=== PATIENT | male | born 1965 | race Two or more races ===

== ENCOUNTER → 2024-07-18 | Outpatient (CLI) | payer MEDICARE, MEDICAID, SELFPAY ==
--- NOTE | 2024-07-18 08:00 | XR_ITS ---
EXAMINATION: PET/CT FUSION SKULL TO THIGH EXAM DATE AND TIME: July 18, 2024 0923 hours COMPARISON: CT abdomen pelvis July 03, 2022, CTA chest July 03, 2022 INDICATIONS: Diagnosis malignant neoplasm prostate, restaging post treatment CTDI:vol (mGy) 3.98 DLP: (mGycm) 363.41 PROCEDURE: 14.8 mCi FDG was administered intravenously To allow for distribution and uptake of radiotracer, the patient was allowed to rest quietly in a shielded room. Imaging was performed on an integrated 16-slice PET/CT scanner, with scanning from the skull base to the mid thigh. Serum blood glucose at the time of the injection was measured 74 mg/dL. CT scanning was performed without oral or intravenous contrast material. FINDINGS: Head and Neck: There is no petra hypermetabolism in the neck. The visualized portions of the brain are normal in appearance on CT. Chest: Non hypermetabolic 12 mm right tracheobronchial lymph node Abdomen and Pelvis: Numerous to to 8 mm non hypermetabolic pericaval periaortic lymph nodes 5 mm left common iliac lymph node Numerous 2 to 3 mm internal iliac lymph nodes Marked prostatomegaly, AP dimension 7.1 cm with suprapubic cystostomy Urinary bladder wall thickening up to 4 mm Musculoskeletal: Marrow uptake is within normal range. IMPRESSION: 12 mm non hypermetabolic right tracheobronchial lymph node Numerous subcentimeter abdominal and pelvic non hypermetabolic lymph nodes Marked prostatomegaly, AP dimension 7.1 cm
== END | disposition home or self-care (01) ==
PROVIDERS: Referring Provider Emergency Medicine; Visit Provider Emergency Medicine
DX: N40.0 Benign prostatic hyperplasia without lower urinary tract symptoms (principal); Z85.46 Personal history of malignant neoplasm of prostate
CPT/HCPCS: 78815; A9552